=== PATIENT | male | born 1940 | race Caucasian/White ===

== ENCOUNTER 2018-08-07 10:04 | Inpatient (IN) | payer MEDICARE ==
[~2018-08-07] VITALS: Ht 177.8 cm; Wt 98.7 kg
[~2018-08-07 10:04] MED LIST: APIX5TAB PO; ASPI-496 PO; CALCIUM PO; CHOL200024 PO; EPINEPHRINE 1 MG/ML, 1ML ONE; HYDR25TA6 PO; KETOROLAC 60 MG/2 ML ONE; LOSA100T14 PO; MAGNESIUM PO; METO1TAB18 PO; POTA20PA25 PO; ROPIvacaine/PF 0.2%, 20 ML ONE; SIMV10TA PO; SODIUM CHLORIDE 0.9% 50 ML ONE; SULF-169 PO; TRANEXAMIC ACID 100 MG/ML, 10ML ONE
[2018-08-07] MEDS ORDERED: FENTANYL PF 250 MCG/5ML ONE (12:59)
[2018-08-07] MEDS ORDERED: CEFAZOLIN 1,000 MG ONE (13:00)
[2018-08-07] MEDS ORDERED: NEOSTIGMINE 1 MG/ML, 10ML ONE (13:00)
[2018-08-07] MEDS ORDERED: GLYCOPYRROLATE 0.2MG/1ML, 5ML ONE (13:00)
[2018-08-07] MEDS ORDERED: PROPOFOL 10 MG/ML, 20ML ONE (13:00)
[2018-08-07] MEDS ORDERED: ROCURONIUM 10MG/ML,5ML ONE (13:00)
[2018-08-07] MEDS ORDERED: ROPIvacaine/PF 0.2%, 20 ML ONE (13:00)
[2018-08-07] MEDS ORDERED: ACETAMINOPHEN 500 MG TABLET PO ONE (13:00)
[2018-08-07] MEDS ORDERED: GABAPENTIN 300 MG CAPSULE PO ONE (13:00)
[2018-08-07] MEDS ORDERED: VANCOMYCIN PER PHARMACY MC STA (13:01)
[2018-08-07] MEDS ORDERED: VANCOMYCIN 1,800 MG in SODIUM CHLORIDE 0.9% 250 ML IV ONE (13:30)
[2018-08-07] MEDS: LACTATED RINGERS 1,000 ML IV SCH ×2 (13:58→13:59)
[2018-08-07] MEDS: D5%-0.45NACL+KCL 20MEQ 1,000 ML IV SCH (14:07)
[2018-08-07] MEDS ORDERED: PHENYLEPHRINE 10 MG/ML ONE (14:23)
[2018-08-07] MEDS ORDERED: PROMETHAZINE 12.5 MG SUPP PR PRN ×2 (14:30)
[2018-08-07] MEDS ORDERED: ALUMINUM/MAG/SIMETHICONE 30 ML UDC PO PRN (14:30)
[2018-08-07] MEDS ORDERED: OXYcodone 5 MG/5 ML ORAL.SOL UDC PO PRN (14:30)
[2018-08-07] MEDS ORDERED: ONDANSETRON ODT 8 MG PO PRN (14:30)
[2018-08-07] MEDS ORDERED: LABETALOL 5MG/ML, 20ML IV PRN (14:30)
[2018-08-07] MEDS ORDERED: DIPHENHYDRAMINE 50 MG CAPSULE PO PRN (14:30)
[2018-08-07] MEDS ORDERED: ONDANSETRON 4 MG TABLET PO PRN (14:30)
[2018-08-07] MEDS ORDERED: PROMETHAZINE 25 MG SUPP PR PRN (14:30)
[2018-08-07] MEDS ORDERED: PROMETHAZINE 25 MG/ML, 1ML IM PRN ×3 (14:30)
[2018-08-07] MEDS ORDERED: TRANEXAMIC ACID 1,000 MG in SODIUM CHLORIDE 0.9% 100 ML IVPB ONE (14:30)
[2018-08-07] MEDS ORDERED: MEPERIDINE/PF 25MG/0.5ML IVPush PRN (14:30)
[2018-08-07] MEDS ORDERED: ONDANSETRON 2MG/ML, 2ML IV PRN ×2 (14:30)
[2018-08-07] MEDS ORDERED: hydrALAzine 20 MG/ML, 1ML IV PRN (14:30)
[2018-08-07] MEDS ORDERED: morphine SULFATE 10 MG/ML, 1ML IV PRN (14:30)
[2018-08-07] MEDS ORDERED: PROMETHAZINE 25 MG/ML, 1ML IV PRN (14:30)
[2018-08-07] MEDS ORDERED: MAGNESIUM HYDROXIDE 8%, 30ML UDC PO PRN (14:30)
[2018-08-07] MEDS ORDERED: SENNA/DOCUSATE TABLET PO PRN (14:30)
[2018-08-07] MEDS ORDERED: ACETAMINOPHEN 650 MG/20.3 ML UDC PO PRN (14:30)
[2018-08-07] MEDS ORDERED: MORPHINE SULFATE 4 MG/ML, 1ML IVPush PRN (14:30)
[2018-08-07] MEDS ORDERED: TRANEXAMIC ACID 100 MG/ML, 10ML ONE ×2 (14:50)
[2018-08-07] MEDS ORDERED: FENTANYL PF 100 MCG/2ML ONE (16:27)
[2018-08-07] MEDS ORDERED: OXYcodone 5 MG/5 ML ORAL.SOL UDC ONE (16:28)
[2018-08-07] MEDS: FENTANYL PF 100 MCG/2ML IV PRN (16:40)
[2018-08-07] MEDS: TAMSULOSIN 0.4 MG CAP.ER.24H PO SCH (19:25)
[2018-08-07 19:55] VITALS: BP 131/71
[2018-08-07] MEDS: DOCUSATE 100 MG CAPSULE PO SCH (20:18)
[2018-08-07] MEDS: CEFAZOLIN PMX 1GM/50ML 50 ML IVPB SCH (22:48)
[2018-08-08 00:23] VITALS: BP 100/60
[2018-08-08] MEDS: D5%-0.45NACL+KCL 20MEQ 1,000 ML IV SCH ×3 (02:00→17:10)
[2018-08-08] MEDS ORDERED: VANCOMYCIN PMX 1GM/200ML 200 ML IVPB ONE (02:30)
[2018-08-08 05:50] VITALS: BP 119/66
[2018-08-08] MEDS ORDERED: DEXAMETHASONE 4 MG/ML, 1ML IVPush SCH (06:00)
[2018-08-08 06:33] LABS: BASOPHILS # (AUTO) 0.02 x10^3/uL (0-0.1); BASOPHILS % (AUTO) 0 % (0-1); EOSINOPHILS # (AUTO) 0.18 x10^3/uL (0-0.4); EOSINOPHILS % (AUTO) 3 % (1-7); LYMPHOCYTES # (AUTO) 1.21 x10^3/uL (1-3.4); LYMPHOCYTES % (AUTO) 18 % (22-44); MD NO; MEAN CORPUSCULAR HEMOGLOBIN 30.4 pg (27.5-34.5); MEAN CORPUSCULAR HGB CONC 34.4 g/dL (33.2-36.2); MEAN CORPUSCULAR VOLUME 88.4 fL (81-97); MEAN PLATELET VOLUME 6.8 fL (7.4-10.4); MONOCYTES # (AUTO) 0.83 x10^3/uL (0.2-0.8); MONOCYTES % (AUTO) 12 % (2-9); NEUTROPHILS # (AUTO) 4.42 x10^3/uL (1.8-6.8); NEUTROPHILS % (AUTO) 66 % (42-75); PLATELET COUNT 243 x10^3/uL (130-400); RED BLOOD COUNT 3.67 x10^6/uL (4.38-5.82); RED CELL DISTRIBUTION WIDTH 13.3 % (9.4-14.8)
[2018-08-08 06:44] LABS: ANION GAP 5 mmol/L (5-15); CALCIUM 9.1 mg/dL (8.5-10.1); CHLORIDE 105 mmol/L (98-107)
[2018-08-08 06:48] LABS: ALBUMIN 2.8 g/dL (3.4-5.0); CREATININE 1.63 mg/dL (0.7-1.3)
[2018-08-08 07:22] VITALS: BP 121/65
[2018-08-08] MEDS: TAMSULOSIN 0.4 MG CAP.ER.24H PO SCH (07:40)
[2018-08-08] MEDS: CEFAZOLIN PMX 1GM/50ML 50 ML IVPB SCH (07:40)
[2018-08-08] MEDS: DOCUSATE 100 MG CAPSULE PO SCH ×2 (07:40→20:28)
[2018-08-08] MEDS: APIXABAN 5 MG TABLET PO SCH ×2 (11:09→22:25)
[2018-08-08] MEDS: ASPIRIN 81 MG TABLET EC PO SCH (11:09)
[2018-08-08] MEDS: OXYcodone IR 5MG TABLET PO PRN ×2 (13:25→20:29)
[2018-08-08] MEDS: KETOROLAC 30 MG/1 ML IV SCH ×2 (13:25→22:25)
[2018-08-08 13:44] VITALS: BP 117/67
[2018-08-08 19:36] VITALS: BP 118/65
[2018-08-08] MEDS: CEFAZOLIN 2,000 MG in SODIUM CHLORIDE 0.9% 50 ML IV SCH (20:28)
[2018-08-09] MEDS: D5%-0.45NACL+KCL 20MEQ 1,000 ML IV SCH ×3 (00:25→07:30)
[2018-08-09] MEDS: OXYcodone IR 5MG TABLET PO PRN ×3 (02:17→12:08)
[2018-08-09 02:19] VITALS: BP 125/64
[2018-08-09] MEDS: CEFAZOLIN 2,000 MG in SODIUM CHLORIDE 0.9% 50 ML IV SCH ×2 (04:34→12:08)
[2018-08-09] MEDS: KETOROLAC 30 MG/1 ML IV SCH (05:33)
[2018-08-09] MEDS: ASPIRIN 81 MG TABLET EC PO SCH (06:13)
[2018-08-09] MEDS: APIXABAN 5 MG TABLET PO SCH (07:41)
[2018-08-09] MEDS: DOCUSATE 100 MG CAPSULE PO SCH (07:41)
[2018-08-09] MEDS: TAMSULOSIN 0.4 MG CAP.ER.24H PO SCH (07:41)
[2018-08-09 07:53] VITALS: BP 138/70
[2018-08-09 13:10] VITALS: BP 148/70
[2018-08-09 14:05] VITALS: BP 146/78
[2018-08-09] MEDS ORDERED: DOCU-131 PO (14:58)
[2018-08-09] MEDS ORDERED: ONDA4TAB7 PO (14:58)
[2018-08-09] MEDS ORDERED: MELO7.5T5 PO (14:59)
[2018-08-09] MEDS ORDERED: TRAM50TA2 PO (15:00)
[2018-08-09] MEDS ORDERED: OXYC5TAB3 PO (15:00)
== END 2018-08-09 16:05 | DRG 485 ==
LOC: ORIP 12:09 → 4NOR 17:27
PROVIDERS: ADMIT Orthopaedic Surgery; ATTEND Orthopaedic Surgery
PROC: 0SUW09Z Supplement Left Knee Joint, Tibial Surface with Liner, Open Approach (ICD-10-PCS; 2018-08-07)
PROC: 0SBD0ZZ Excision of Left Knee Joint, Open Approach (ICD-10-PCS; 2018-08-07)
PROC: 3E0U029 Introduction of Other Anti-infective into Joints, Open Approach (ICD-10-PCS; 2018-08-07)
PROC: 3E0T3BZ Introduction of Anesthetic Agent into Peripheral Nerves and Plexi, Percutaneous Approach (ICD-10-PCS; 2018-08-07)
PROC: 0SPD09Z Removal of Liner from Left Knee Joint, Open Approach (ICD-10-PCS; principal; 2018-08-07 11:45)
PROC: 02HV33Z Insertion of Infusion Device into Superior Vena Cava, Percutaneous Approach (ICD-10-PCS; 2018-08-08)
PROC: B548ZZA Ultrasonography of Superior Vena Cava, Guidance (ICD-10-PCS; 2018-08-08)
PROC: B5181ZA Fluoroscopy of Superior Vena Cava using Low Osmolar Contrast, Guidance (ICD-10-PCS; 2018-08-08)
DX: T84.54XA Infection and inflammatory reaction due to internal left knee prosthesis, initial encounter (principal); E43 Unspecified severe protein-calorie malnutrition; M00.062 Staphylococcal arthritis, left knee; D63.8 Anemia in other chronic diseases classified elsewhere; I10 Essential (primary) hypertension; I25.10 Atherosclerotic heart disease of native coronary artery without angina pectoris; N28.9 Disorder of kidney and ureter, unspecified; Z16.23 Resistance to quinolones and fluoroquinolones; Z96.652 Presence of left artificial knee joint; B95.7 Other staphylococcus as the cause of diseases classified elsewhere; K59.00 Constipation, unspecified; Y83.1 Surgical operation with implant of artificial internal device as the cause of abnormal reaction of the patient, or of later complication, without mention of misadventure at the time of the procedure; Z75.1 Person awaiting admission to adequate facility elsewhere; Z82.49 Family history of ischemic heart disease and other diseases of the circulatory system; Z85.46 Personal history of malignant neoplasm of prostate; Z90.79 Acquired absence of other genital organ(s); Z95.1 Presence of aortocoronary bypass graft; Z95.2 Presence of prosthetic heart valve; Z68.31 Body mass index [BMI] 31.0-31.9, adult; Z88.6 Allergy status to analgesic agent
CPT/HCPCS: 36415; 36573; 80048; 82040; 85025; 87070; 87075; 87102; 87116; 87205; 87206; G0378; J0171; J0690; J1100; J1885; J2704; J2710; J2795; J3010; J3370; J3490; C1751; C1776; J2370; J7050; J7120